=== PATIENT | male | born 1995 | race Caucasian/White ===

== ENCOUNTER 2017-02-08 19:40 | Emergency (ER) | payer OTHER ==
[2017-02-08] MEDS ORDERED: NS 1,000 ML IV ONE ×2 (20:04→21:05)
--- NOTE | 2017-02-08 20:04 | UCPHY ---
H & P Time Seen by Provider: 02/08/17 19:50 Patient Type: Established HPI/ROS: 22-year-old male presents complaining shortness of breath, body aches, fevers chills. Patient states he has been working in [employer] and feels like this may be related to altitude sickness. He states he travels back and forth between [place] sometimes he stays [place] but when he comes back to [place] he always feels much better. He denies leg swelling or calf pain. Review of systems As per HPI General positive fever positive chills no weakness HEENT no eye pain no eye discharge. No eye redness, no sore throat Respiratory positive cough positive shortness of breath Cardiac no chest pain, no peripheral edema GI no abdominal pain, no diarrhea, no constipation, positive nausea, no vomiting no flank pain, no hematuria, no dysuria Musculoskeletal positive myalgias, no joint pain Heme no easy bruising, no easy bleeding Endo no polyuria, no polydipsia Skin no rashes, no pruritus Neuro no syncope, no dizziness, no headaches Psych is no suicidal ideation, no homicidal ideation Past Medical/Surgical History: History of facial reconstruction Migraines Social History: Denies excessive alcohol or drug use Smoking Status: Current every day smoker Physical Exam: 22-year-old male alert and oriented tachycardic tachypneic HEENT atraumatic normocephalic, extraocular muscles intact, anicteric Oropharynx negative for erythema negative exudate, tolerating her own secretions Neck supple no meningismus Lungs clear to auscultation bilaterally Heart rapid regular rate and rhythm without murmur rub or gallop Abdomen nondistended normoactive bowel sounds soft nontender Back no CVA tenderness, no step-offs, no spinal tenderness Extremities no cyanosis clubbing or edema Neuro alert and oriented, no focal deficits Constitutional: Initial Vital Signs Temperature (C) 37.1 C 02/08/17 19:52 Heart Rate 125 H 02/08/17 19:52 Respiratory Rate 20 02/08/17 19:52 Blood Pressure 146/84 H 02/08/17 19:52 O2 Sat (%) 94 02/08/17 19:52 O2 Delivery Mode Room Air Allergies/Adverse Reactions: acetaminophen [From Vicodin] Allergy (Verified 02/08/17 19:51) aspirin Allergy (Verified 02/08/17 19:51) hydrocodone [From Vicodin] Allergy (Verified 02/08/17 19:51) Penicillins Allergy (Verified 02/08/17 19:51) tramadol Allergy (Verified 02/08/17 19:52) Home Medications: Medication Instructions Recorded Ibuprofen 02/08/17 Medical Decision Making ED Course/Re-evaluation: Patient seen and evaluated for multiple symptoms including cough body aches fevers chills fatigue nausea, concerned that he may have altitude sickness. He appeared ill upon arrival. IV was established an IV fluids were started Labs were sent Influenza negative Chest x-ray negative Lactate normal D-dimer slightly elevated CBC normal CT chest to rule out PE given patient's symptoms of tachycardia tachypnea and his frequent travel to altitude D-dimer was mildly elevated CT scan was negative for pulmonary embolus negative for consolidation negative for effusion negative for cardiomegaly Differential diagnosis considered Viral syndrome, influenza, bronchitis, pneumonia, pulmonary embolus, altitude sickness, dehydration, opiate withdrawal Impression Likely viral syndrome may be exacerbated by frequent trips to altitude, unclear Also cannot rule out some component of opiate withdrawal however it is not clear how often the patient is on opiates Plan Patient markedly improved after several L of fluid, Decadron, Toradol, Zofran. Patient discharge home advised to rest drink plenty of fluids and no work for several days Follow up with primary care physician Return if worsening - Data Points Laboratory Results: Laboratory Results 02/08/17 20:20 02/08/17 20:20 Microbiology Results: MICROBIOLOGY 02/08/17 20:45 Blood Blood Culture - Preliminary 02/08/17 20:20 Blood Blood Culture - Preliminary Medications Given: Discontinued Medications Dexamethasone (Decadron Injection) 4 mg IVP EDNOW ONE Stop: 02/08/17 21:06 Last Admin: 02/08/17 21:13 Dose: 4 mg Sodium Chloride (Ns) 1,000 mls @ 0 mls/hr IV ONCE ONE PRN Reason: Wide Open Stop: 02/08/17 20:05 Last Admin: 02/08/17 20:25 Dose: 1,000 mls Sodium Chloride (Ns) 1,000 mls @ 0 mls/hr IV ONCE ONE PRN Reason: Wide Open Stop: 02/08/17 21:06 Last Admin: 02/08/17 21:30 Dose: 1,000 mls Ketorolac Tromethamine (Toradol) 30 mg IVP EDNOW ONE Stop: 02/08/17 22:45 Last Admin: 02/08/17 22:50 Dose: 30 mg Departure - Departure Disposition: Home, Routine, Self-Care Clinical Impression: Viral illness Condition: Good Instructions: Dehydration (ED), Mountain Sickness (ED), Viral Syndrome (ED) Referrals: NONE *PRIMARY CARE P,. [Primary Care Provider] - As per Instructions Stand Alone Forms: Work Excuse - PQRS PQRS Measurement: na
[2017-02-08 20:26] LABS: % IMMATURE GRANULYOCYTES 0.3 % (0.0-1.1); ABSOLUTE IMMATURE GRANULOCYTES 0.03 10^3/uL (0.00-0.10); ADD DIFF? NO; ADD MORPH? NO; ADD SCAN? NO; ATYPICAL LYMPHOCYTE FLAG 10 (0-99); FRAGMENT RBC FLAG 0 (0-99); HEMATOCRIT 46.2 % (40.0-51.0); HEMOGLOBIN 16.2 g/dL (13.7-17.5); LEFT SHIFT FLG 0 (0-99); LIPEMIA HEMOLYSIS FLAG 90 (0-99); MEAN CELL HEMOGLOBIN 30.3 pg (27.9-34.1); MEAN CELL HEMOGLOBIN CONCENTR. 35.1 g/dL (32.4-36.7); MEAN CELL VOLUME 86.5 fL (81.5-99.8); MEAN PLATELET VOLUME 10.3 fL (8.7-11.7); PLATELET CLUMPS FLAG 0 (0-99); PLATELET COUNT 175 10^3/uL (150-400); RED BLOOD CELL COUNT 5.34 10^6/uL (4.40-6.38); RED CELL DISTRIBUTION WIDTH 13.1 % (11.5-15.2)
[2017-02-08 20:35] LABS: INR 0.92 (0.83-1.16); PROTIME(PATIENT) 12.1 SEC (12.0-15.0)
[2017-02-08 20:36] LABS: APTT 29.7 SEC (23.0-38.0)
[2017-02-08 20:39] LABS: ALANINE AMINOTRANSFERASE 77 IU/L (21-72); ALBUMIN 4.5 g/dL (3.5-5.0); ALKALINE PHOSPHATASE 147 IU/L (38-126); ANION GAP 19 mEq/L (8-16); ASPARTATE AMINOTRANSFERASE 40 IU/L (17-59); CALCIUM 9.7 mg/dL (8.5-10.4); CARBON DIOXIDE 21 mEq/l (22-31); CHLORIDE 103 mEq/L (97-110); CREATININE 0.9 mg/dL (0.7-1.3); GLOMERULAR FILTRATION RATE > 60; GLUCOSE 114 mg/dL (70-100); POTASSIUM 3.3 mEq/L (3.5-5.2); SODIUM 143 mEq/L (134-144); TOTAL PROTEIN 7.7 g/dL (6.3-8.2)
[2017-02-08] MEDS ORDERED: DEXAMETHASONE 4 MG TAB ONE (21:02)
[2017-02-08] MEDS ORDERED: methylPREDNISolone SOD SUCC 125 MG/2 ML VIAL ONE (21:02)
[2017-02-08] MEDS ORDERED: DEXAMETHASONE 4 MG/ML VIAL IVP ONE (21:05)
[2017-02-08] MEDS ORDERED: IOPAMIDOL (ISOVUE-370) 150 ML BTL IV ONE (21:13)
[2017-02-08 22:29] VITALS: BP 106/75; PULSE 97; RESP 24; TEMP 98.4; O2SAT 94
[2017-02-08] MEDS ORDERED: KETOROLAC 30 MG/1 ML SDV IVP ONE (22:44)
== END 2017-02-08 22:57 | disposition home or self-care (01) ==
LOC: CED 19:40
DX: B34.9 Viral infection, unspecified (principal)
CPT/HCPCS: 71020-PO; 71275-PO; 80053-PO; 82550-PO; 83605-PO; 85025-PO; 85378-PO; 85610-PO; 85730-PO; 87400-PO; 96361-PO; 96374-PO; 96375-PO; 99215-PO; G0463-PO; J1100; J1885; Q9967